=== PATIENT | male | born 1955 | race Caucasian/White ===

== ENCOUNTER → 2021-11-16 | Outpatient (CLI) | payer MEDICARE ==
--- NOTE | 2021-11-16 11:49 | Diagnostic Imaging Report ---
INDICATION: Idiopathic pericarditis. FINDINGS: PA and lateral view. The lungs are well aerated and clear. Heart is not enlarged. No evidence of pulmonary edema or hilar adenopathy. No pneumothorax or pleural effusion. No bony abnormalities. IMPRESSION: Normal PA and lateral chest. Dictated by: Dictated on workstation # [id number]
[2021-11-16 12:19] LABS: CARBON DIOXIDE 21 MMOL/L (21-32); CHLORIDE 106 MMOL/L (98-107); POTASSIUM 4.4 MMOL/L (3.6-5.0); SODIUM 138 MMOL/L (135-145)
[2021-11-16 12:20] LABS: BUN/CREATININE RATIO 22; CALCIUM 9.4 MG/DL (8.5-10.1); CREATININE SERUM 1.21 MG/DL (0.60-1.30); GFR ESTIMATED 66; GLUCOSE 97 MG/DL (70-105)
== END ==
LOC: LAB FS 11:26
PROVIDERS: ATTEND Family Medicine
DX: I30.0 Acute nonspecific idiopathic pericarditis (principal)
CPT/HCPCS: 36415; 71046; 80048; 84484; 86141

== ENCOUNTER → 2021-11-17 | Outpatient (CLI) | payer MEDICARE | LOC: CARD 14:30 | PROVIDERS: ATTEND Family Medicine | DX: I08.0 Rheumatic disorders of both mitral and aortic valves (principal); I30.0 Acute nonspecific idiopathic pericarditis | CPT/HCPCS: 93306 ==

== ENCOUNTER 2021-11-27 12:22 | Emergency (ER) | payer MEDICARE ==
[~2021-11-27] VITALS: Ht 187.9 cm; Wt 143.2 kg
[2021-11-27] MEDS ORDERED: RT-ALBUTEROL/IPRATROPIUM 3 ML (DUONEB) VIAL INH STA (12:32)
[2021-11-27 12:45] LABS: BASOPHILS # (AUTO) 0.1 10^3/uL (0.0-0.1); BASOPHILS % (AUTO) 1 % (0-10); EOSINOPHILS # (AUTO) 0.4 10^3/uL (0.0-0.3); EOSINOPHILS % (AUTO) 4 % (0-10); HEMATOCRIT 49 % (40-54); HEMOGLOBIN 17.1 g/dL (13.3-17.7); LYMPHOCYTES # (AUTO) 1.9 10^3/uL (1.0-4.0); LYMPHOCYTES % (AUTO) 18 % (12-44); MEAN CORPUSCULAR HEMOGLOBIN 32 pg (25-34); MEAN CORPUSCULAR HGB CONC 35 g/dL (32-36); MEAN CORPUSCULAR VOLUME 93 fL (80-99); MEAN PLATELET VOLUME 10.9 fL (9.0-12.2); MONOCYTES # (AUTO) 1.2 10^3/uL (0.0-1.0); MONOCYTES % (AUTO) 11 % (0-12); NEUTROPHILS # (AUTO) 7.1 10^3/uL (1.8-7.8); NEUTROPHILS % (AUTO) 67 % (42-75); PLATELET COUNT 161 10^3/uL (130-400); WHITE BLOOD COUNT 10.6 10^3/uL (4.3-11.0)
[2021-11-27] MEDS ORDERED: ASPIRIN 81 MG CHEW (CHILDREN'S ASA) PO ONE (12:45)
--- NOTE | 2021-11-27 12:50 | Diagnostic Imaging Report ---
PATIENT HISTORY: Chest pain 2 weeks, SOA. TECHNIQUE: Single frontal view of the chest. COMPARISON: 11/16/2021. FINDINGS: The lung volumes are normal. There is eventration of the right hemidiaphragm. No focal consolidation is seen. No large pleural effusion or pneumothorax is seen. The cardiomediastinal silhouette is normal in size and contour. No acute osseous abnormality is seen. IMPRESSION: No acute pulmonary abnormality seen. Dictated by: Dictated on workstation # [id number]
--- NOTE | 2021-11-27 12:53 | ED General ---
General Chief Complaint: Chest Pain Stated Complaint: CHEST PAIN; SOB Source of Information: Patient, Spouse History of Present Illness Date Seen by Provider: Nov 27, 2021 Time Seen by Provider: 12:24 Initial Comments 66-year-old male presenting with complaints of chest pain for over 2 weeks. He was evaluated through the clinic and had lab as well as an echocardiogram done. He was told that he likely had pericarditis. This morning he was having pain with movement and felt short of breath, which were new symptoms for him. He also has a history of asthma but has not tried to use his inhaler for his shortness of breath. He tried taking ibuprofen that he had been using for his pericarditis. He does take medicine for high blood pressure. His and tried contacting Dr. Tadeo, his PCP, however, that doctor had just returned from being on vacation and has not answered her reaching out to the clinic. He denies nausea, vomiting, diaphoresis, cough, fever, chills Severity: Moderate Modifying Factors: worse with Movement Associated Systoms: Chest Pain; No Cough, No Diaphoresis, No Fever/Chills, No Headaches, No Loss of Appetite, No Malaise, No Nausea/Vomiting, No Rash, No Seizure; Shortness of Air; No Syncope, No Weakness Allergies and Home Medications Allergies Coded Allergies: Iodinated Contrast Media (Verified Allergy, Unknown, 11/27/21) Patient Home Medication List Home Medication List Reviewed: Yes Review of Systems Review of Systems Constitutional: No chills, No fever, No malaise EENTM: no symptoms reported Respiratory: No phlegm; short of breath; No stridor, No wheezing Cardiovascular: see HPI, chest pain (pain with movement, improves with leaning forward); No edema, No palpitations Gastrointestinal: No nausea, No vomiting Genitourinary: no symptoms reported Musculoskeletal: no symptoms reported Skin: No rash Psychiatric/Neurological: Denies Headache, Denies Numbness Hematologic/Lymphatic: Denies Blood Clots Past Aexufuw-Xpifxe-Bhtmyl Hx Patient Social History Tobacco Use?: No Use of E-Cig and/or Vaping dev: No Substance use?: No Seasonal Allergies Seasonal Allergies: Yes Past Medical History Surgery/Hospitalization HX: Obesity, HTN, Hypercholesterolemia, Asthma, Gout Respiratory: Yes Asthma Cardiac: Yes High Cholesterol, Hypertension Neurological: No Genitourinary: No Gastrointestinal: Yes Gastroesophageal Reflux Musculoskeletal: Yes Arthritis Endocrine: No HEENT: No Psychosocial: No Physical Exam Vital Signs Vital Signs - First Documented 11/27/21 11/27/21 12:23 14:35 Temp 36.1 Pulse 61 Resp 16 B/P (MAP) 151/91 (111) Pulse Ox 96 O2 Delivery Room Air Capillary Refill : Height, Weight, BMI Height: '" Weight: lbs. oz. kg; BMI Method: General Appearance: No Apparent Distress, WD/WN, Obese HEENT: PERRL/EOMI, Pharynx Normal Neck: Full Range of Motion, Normal Inspection, Non Tender, Supple Respiratory: Lungs Clear, No Accessory Muscle Use, No Respiratory Distress, Decreased Breath Sounds Cardiovascular: Regular Rate, Rhythm, No Murmur, Normal Peripheral Pulses Gastrointestinal: Normal Bowel Sounds, No Pulsatile Mass, Non Tender, Soft Rectal: Deferred Extremity: Normal Capillary Refill, Normal Inspection, Normal Range of Motion, No Calf Tenderness, No Pedal Edema Neurologic/Psychiatric: Alert, Oriented x3, paperboard boxes estimator II-XII Norm as Tested Skin: Normal Color, Warm/Dry Progress/Results/Core Measures Suspected Sepsis SIRS Temperature: Pulse: Respiratory Rate: Laboratory Tests 11/27/21 12:30: White Blood Count 10.6 Blood Pressure / Mean: Laboratory Tests 11/27/21 12:30: Creatinine 1.10, INR Comment 0.9, Platelet Count 161, Total Bilirubin 0.5 Results/Orders Lab Results Laboratory Tests Test 11/27/21 12:30 Range/Units White Blood Count 10.6 4.3-11.0 10^3/uL Red Blood Count 5.33 4.30-5.52 10^6/uL Hemoglobin 17.1 13.3-17.7 g/dL Hematocrit 49 40-54 % Mean Corpuscular Volume 93 80-99 fL Mean Corpuscular Hemoglobin 32 25-34 pg Mean Corpuscular Hemoglobin Concent 35 32-36 g/dL Red Cell Distribution Width 12.7 10.0-14.5 % Platelet Count 161 130-400 10^3/uL Mean Platelet Volume 10.9 9.0-12.2 fL Immature Granulocyte % (Auto) 0 % Neutrophils (%) (Auto) 67 42-75 % Lymphocytes (%) (Auto) 18 12-44 % Monocytes (%) (Auto) 11 0-12 % Eosinophils (%) (Auto) 4 0-10 % Basophils (%) (Auto) 1 0-10 % Neutrophils # (Auto) 7.1 1.8-7.8 10^3/uL Lymphocytes # (Auto) 1.9 1.0-4.0 10^3/uL Monocytes # (Auto) 1.2 H 0.0-1.0 10^3/uL Eosinophils # (Auto) 0.4 H 0.0-0.3 10^3/uL Basophils # (Auto) 0.1 0.0-0.1 10^3/uL Immature Granulocyte # (Auto) 0.0 0.0-0.1 10^3/uL Prothrombin Time 12.9 12.2-14.7 SEC INR Comment 0.9 0.8-1.4 Activated Partial Thromboplast Time 28 24-35 SEC D-Dimer 0.44 0.00-0.49 UG/ML Sodium Level 137 135-145 MMOL/L Potassium Level 4.3 3.6-5.0 MMOL/L Chloride Level 104 98-107 MMOL/L Carbon Dioxide Level 23 21-32 MMOL/L Anion Gap 10 5-14 MMOL/L Blood Urea Nitrogen 31 H 7-18 MG/DL Creatinine 1.10 0.60-1.30 MG/DL Estimat Glomerular Filtration Rate 74 BUN/Creatinine Ratio 28 Glucose Level 98 70-105 MG/DL Calcium Level 9.6 8.5-10.1 MG/DL Corrected Calcium 8.5-10.1 MG/DL Magnesium Level 1.9 1.6-2.4 MG/DL Total Bilirubin 0.5 0.1-1.0 MG/DL Aspartate Amino Transf (AST/SGOT) 33 5-34 U/L Alanine Aminotransferase (ALT/SGPT) 39 0-55 U/L Alkaline Phosphatase 80 40-136 U/L Myoglobin 67.1 10.0-92.0 NG/ML Troponin I < 0.30 <0.30 NG/ML C-Reactive Protein < 0.30 <0.50 MG/DL Pro-B-Type Natriuretic Peptide 119.4 H <75.0 PG/ML Total Protein 7.4 6.4-8.2 GM/DL Albumin 4.6 H 3.2-4.5 GM/DL Lipase 23 8-78 U/L My Orders Orders - ZAKIA SONG MD Cbc With Automated Diff (11/27/21 12:32) Magnesium (11/27/21 12:32) Chest 1 View Ap/Pa Only (11/27/21 12:32) Ekg Tracing (11/27/21 12:32) Comprehensive Metabolic Panel (11/27/21 12:32) Myoglobin Serum (11/27/21 12:32) Protime With Inr (11/27/21 12:32) Partial Thromboplastin Time (11/27/21 12:32) O2 (11/27/21 12:32) Monitor-Rhythm Ecg Trace Only (11/27/21 12:32) Aspirin Chewable Tablet (Baby Aspirin Ch (11/27/21 12:45) Ed Iv/Invasive Line Start (11/27/21 12:32) Lipase (11/27/21 12:32) Fibrin Degradation Products (11/27/21 12:32) Crp Fs (11/27/21 12:32) Albuterol/Ipra Inhalation Soln (Duoneb I (11/27/21 12:32) Dexamethasone Injection (Decadron Inje (11/27/21 12:32) Svn Small Volume Nebulizer (11/27/21 12:32) Probnp Fs (11/27/21 12:32) Troponin I Fs (11/27/21 12:32) Albuterol Pre-Mix Nebs (Rt) (Proventil (11/27/21 14:05) Svn Small Volume Nebulizer (11/27/21 14:05) Nursing Communication (Order) (11/27/21 14:05) Medications Given in ED Current Medications Medications Dose Ordered Sig/Mirza Route Start Time Stop Time Status Last Admin Dose Admin Aspirin 324 mg ONCE ONCE PO 11/27/21 12:45 11/27/21 12:46 DC 11/27/21 12:55 324 MG Vital Signs/I&O 11/27/21 11/27/21 12:23 14:35 Temp 36.1 Pulse 61 71 Resp 16 16 B/P (MAP) 151/91 (111) 124/87 Pulse Ox 96 O2 Delivery Room Air Capillary Refill : Progress Note #1: Progress Note Check basic labs and cardiac enzymes including D-dimer and CRP. Chest x-ray to evaluate his lungs. Electrocardiogram to look for acute coronary syndrome or ST elevation. Review echocardiogram from earlier this month. Try a dose of dexamethasone as a steroid to see if that might help with and complaining of chest wall pain and muscle pain with movement. 324 mg of aspirin in case there is a cardiac source of his chest pain and shortness of breath. Try a DuoNeb breathing treatment since his lungs have decreased breath sounds and see if asthma may be playing a role for his complaint of shortness of breath. Progress Note #2: Progress Note Vital signs do not demonstrate any acute significant abnormality to indicate acute coronary syndrome or worrisome changes for hypoxia. He has no acute significant abnormality on his electrocardiogram but there is also no prior tracing available for comparison. His echocardiogram from November 17 did not demonstrate any acute heart failure and had an EF of 50 to 55%. Progress Note #3: Progress Note Labs are stable without acute significant abnormality. He continues to have negative cardiac enzymes with a troponin less than 0.3. His CRP is less than 0.3. His D-dimer is negative at 0.4. He has no acute process in chest and appears similar to CXR from November 16. Reviewed results with patient and spouse. Advised that this could be related to asthma as well as he could be having some reflux with being on Ibuprofen and colchicine. He was given a breathing treatment here and he felt that that did improve things. A single dose of Decadron was also given and that seemed to help with the pain from movement. He felt like he was having some shortness of breath develop again and also reassured about his heart test will repeat an albuterol treatment and make sure he has a spacer to use with his inhaler. Discussed with his primary care provider, , and he will try to get pt in with Dr. Carpio for stress test and evaluation. ECG Initial ECG Impression Date: Nov 27, 2021 Initial ECG Impression Time: 12:34 Initial ECG Rate: 58 Initial ECG Rhythm: Normal Sinus Initial ECG Comparisson: No Previous ECG Available Comment Normal sinus rhythm with a heart rate of 58 bpm. MS interval [address] elevation. Borderline left axis deviation. QT interval 401 ms with a QTc interval 394 ms. There is no prior tracing available for comparison. Diagnostic Imaging Diagonstic Imaging: Xray Plain Films/CT/US/NM/MRI: chest Comments NAME: REE HELMS Jeromy [facility] REC#: [id number] PT STATUS: REG ER : 1955 PHYSICIAN: ZAKIA SONG MD ADMIT DATE: 11/27/21/ER FS Draft Date of Exam:11/27/21 CHEST 1 VIEW AP/PA ONLY PATIENT HISTORY: Chest pain 2 weeks, SOA. TECHNIQUE: Single frontal view of the chest. COMPARISON: 11/16/2021. FINDINGS: The lung volumes are normal. There is eventration of the right hemidiaphragm. No focal consolidation is seen. No large pleural effusion or pneumothorax is seen. The cardiomediastinal silhouette is normal in size and contour. No acute osseous abnormality is seen. IMPRESSION: No acute pulmonary abnormality seen. Dictated on workstation # [id number] Dict: 11/27/21 1247 Trans: 11/27/21 1250 [id number] Interpreted by: KEVIN NAJERA MD Electronically signed by: Reviewed: Reviewed by Me Departure Impression Primary Impression: Shortness of breath Additional Impressions: Musculoskeletal chest pain Allergic asthma with acute exacerbation Qualified Codes: J45.21 - Mild intermittent asthma with (acute) exacerbation Disposition: HOME, SELF-CARE Condition: Stable Departure-Patient Inst. Decision time for Depature: 14:27 Referrals: SHAHEEN TADEO MD (PCP) Primary Care Physician DIVINA CARPIO MD Patient Instructions: How to Use a Metered Dose Inhaler ED, How to Use a Spacer, Shortness of Breath, Adult ED, Asthma, Adult ED Add. Discharge Instructions: Your heart tests continue to look good here in the Emergency Department. Use the inhaler with spacer, 2 puffs every 4 hours as needed for shortness of breath, wheezing, cough. Check with Dr. Tadeo and Dr. Carpio about follow up for stress test and follow up All discharge instructions reviewed with patient and/or family. Voiced understanding. Copy Copies To 1: SHAHEEN TADEO MD, MARC E MD Nov 27, 2021 12:53
[2021-11-27 13:03] LABS: INR 0.9 (0.8-1.4); PROTHROMBIN TIME PATIENT 12.9 SEC (12.2-14.7)
[2021-11-27 13:09] LABS: ALANINE AMINOTRANSFERASE 39 U/L (0-55); ALKALINE PHOSPHATASE 80 U/L (40-136); BILIRUBIN,TOTAL 0.5 MG/DL (0.1-1.0); BUN/CREATININE RATIO 28; CALCIUM 9.6 MG/DL (8.5-10.1); CARBON DIOXIDE 23 MMOL/L (21-32); CHLORIDE 104 MMOL/L (98-107); GFR ESTIMATED 74; GLUCOSE 98 MG/DL (70-105); MAGNESIUM 1.9 MG/DL (1.6-2.4); POTASSIUM 4.3 MMOL/L (3.6-5.0); SODIUM 137 MMOL/L (135-145)
[2021-11-27 13:10] LABS: ALBUMIN 4.6 GM/DL (3.2-4.5); LIPASE 23 U/L (8-78); TOTAL PROTEIN 7.4 GM/DL (6.4-8.2)
[2021-11-27 13:12] LABS: FIBRIN DEGRADATION PRODUCTS 0.44 UG/ML (0.00-0.49)
[2021-11-27] MEDS ORDERED: RT-ALBUTEROL SULF 2.5 MG/3 ML PRE-MIX VIAL INH STA (14:05)
[2021-11-27 14:35] VITALS: BP 124/87
== END 2021-11-27 14:35 | disposition home or self-care (01) ==
LOC: EDUNIT# 12:22 → ER FS 12:23
DX: J45.21 Mild intermittent asthma with (acute) exacerbation (principal); R07.89 Other chest pain; I10 Essential (primary) hypertension; E66.9 Obesity, unspecified
CPT/HCPCS: 36415; 71045; 80053; 83690; 83735; 83874; 83880; 84484; 85025; 85379; 85610; 85730; 86141; 93005; 93041; 96372

== ENCOUNTER 2021-12-22 09:51 | Outpatient (CLI) | payer MEDICARE | END 2021-12-22 10:13 | disposition home or self-care (01) | LOC: SLEEP 09:51 | PROVIDERS: ATTEND Internal Medicine Cardiovascular Disease | DX: G47.33 Obstructive sleep apnea (adult) (pediatric) (principal); I10 Essential (primary) hypertension | CPT/HCPCS: G0399 ==

== ENCOUNTER → 2021-12-25 | Outpatient (CLI) | payer MEDICARE ==
[~2021-12-25] VITALS: Ht 187 cm; Wt 145.0 kg
[~2021-12-25] MED LIST: CATHETER FLUSH 10 ML SYR IVP PRN
[2021-12-25 08:48] VITALS: BP 138/90
--- NOTE | 2021-12-27 08:41 | Cardiology Stress Test Report ---
Stress Test Report Date of Procedure/Referring: Date of Procedure: Dec 25, 2021 PCP Nato Carpio MD Admitting Physician Shaheen Ram MD Indications: HTN Baseline Heart Rate: 71 Baseline Blood Pressure: Blood Pressure Systolic: 138 Blood Pressure Diastolic: 90 Vital Signs Date Time Temp Pulse Resp B/P (MAP) Pulse Ox O2 Delivery O2 Flow Rate FiO2 12/25/21 08:48 68 20 138/90 (106) 98 Room Air Baseline Vital Signs Vital Signs Date Time Temp Pulse Resp B/P (MAP) Pulse Ox O2 Delivery O2 Flow Rate FiO2 12/25/21 08:48 68 20 138/90 (106) 98 Room Air Baseline EKG: Baseline EKG: NSR Summary: After explaining the procedure and details to the patient, he signed the consent and was brought to the stress nuclear laboratory. Patient exercised on standard Darwin protocol, EKG, heart rate and blood pressure were monitored continuously, resting and stress doses of radio tracer were injected, imaging was acquired and reviewed in the short axis, horizontal long axis and vertical long axis views Patient was able to exercise for a total of 4 minutes on Darwin protocol, METs 6 Maximum heart rate 144 Maximum blood pressure 195/105 Stress EKG, Minimal nondiagnostic changes Recovery EKG, Return to baseline TID: 1.03 SSS: 0 SDS: 0 EF: 56 Conclusion: 1. Fair exercise tolerance for a total of 4 minutes on standard Darwin protocol, 6 minutes achieving 94% of maximal expected heart rate 2. Appropriate heart rate response to exercise with hypertensive response to exercise peak blood pressure 196/105 return to baseline during recovery 3. Frequent PVCs with transient ventricular bigeminy noted early in recovery 4. Nondiagnostic EKG changes with exercise return to baseline during recovery 5. Diaphragmatic attenuation with typical male pattern, no significant ischemia or infarction on SPECT images 6. Normal left ventricular size, ejection fraction 56% Copy Copies To 1: SHAHEEN RAM MD, BASHAR J MD Dec 27, 2021 08:41
== END ==
LOC: CARD 08:00
PROVIDERS: ATTEND Internal Medicine Cardiovascular Disease
DX: R07.9 Chest pain, unspecified (principal); G47.30 Sleep apnea, unspecified
CPT/HCPCS: 78452; 93017; A9502

== ENCOUNTER 2022-02-15 19:27 | Outpatient (CLI) | payer MEDICARE | END 2022-02-16 07:02 | disposition home or self-care (01) | LOC: SLEEP 19:27 | PROVIDERS: ATTEND Nurse Practitioner | DX: G47.33 Obstructive sleep apnea (adult) (pediatric) (principal) | CPT/HCPCS: 95811 ==